=== PATIENT | female | born 2005 | race African-American/Black ===

== ENCOUNTER 2024-06-25 12:42 | Emergency (ER) | payer OTHER ==
[2024-06-25 13:34] LABS: Absolute Lymphocytes (CBC) 1.8 K/uL (0.7-4.9); Absolute Monocytes 0.5 K/uL (0.1-1.3); Absolute Neutrophil 6.7 K/uL (1.8-8.0); Basophils % 0.5 % (0-1.3); Eosinophils % 0.2 % (0-4.4); Hematocrit 35.5 % (36.0-45.0); Hemoglobin 10.9 g/dL (12.0-15.0); Lymphocytes % 19.4 % (15.3-44.8); MCH 24.5 pg (27.0-35.0); MCHC 30.6 g/dL (32.0-36.0); MPV 8.8 fL (7.6-11.3); Monocytes % 5.6 % (3.3-12.3); Neutrophils % 74.3 % (41.7-73.7); Platelets 410 thou/uL (152-406); RBC Red Blood Cell Count 4.44 M/uL (3.86-4.86); Red Cell Distribution Width 14.4 % (12.1-15.2)
[2024-06-25 13:35] LABS: Specific Gravity > 1.030 (1.005-1.030)
[2024-06-25 13:38] LABS: Specific Gravity > 1.030 (1.005-1.030); Sqamous Epithelial 20-50 /HPF (None Seen); Urine Bacteria 20-50 /HPF (<20); Urine Bilirubin NEGATIVE (Negative); Urine Blood 3+ (OVER) (Negative); Urine Clarity Extremely Turbid (Clear); Urine Color Yellow (Yellow); Urine Culture Reflex Order NOT NEEDED; Urine Glucose NEGATIVE (Negative); Urine Ketones 1+ (Negative); Urine Microscopic Reflex YN ORDER UMIC; Urine Mucus 3+ /HPF (None Seen); Urine Nitrite NEGATIVE (Negative); Urine Protein TRACE (Negative); Urine RBC 21-50 /HPF (None Seen); Urine Urobilinogen Normal (Normal); Urine pH 5.5 (5.0-7.0)
[2024-06-25 13:56] LABS: AST/SGOT 13 U/L (15-37); Albumin 3.8 g/dL (3.4-5.0); Alkaline Phosphatase 69 U/L (45-117); Anion Gap 10.5 mEq/L (5.0-15.0); BUN Blood Urea Nitrogen 12 mg/dL (7-18); Bicarbonate 24 mEq/L (21-32); Bilirubin Total 0.6 mg/dL (0.2-1.0); Globulin 3.9 g/dL (2.3-3.5); Glomerular Filtration Rate 134 ml/min (=/>90); Glucose Level 78 mg/dL (74-106); Potassium 3.5 mEq/L (3.5-5.1); Protein, Total 7.7 g/dL (6.4-8.2); Sodium Level 138 mEq/L (136-145)
[2024-06-25 13:59] LABS: ALT/SGPT < 14 U/L (13-56)
--- NOTE | 2024-06-25 14:06 | RAD REPORT ---
EXAMINATION: CT ABDOMEN AND PELVIS WITH CONTRAST CLINICAL INDICATION: Abdominal pain TECHNIQUE: CT abdomen and pelvis was performed, after the administration of 100 cc Isovue-300.. Sagit melissa and coronal reconstructions were obtained. One or more of the following dose reduction techniques were used: Automated exposure control, adjustment of the mA and kV according to patient si ze, and iterative reconstruction. Unless otherwise specified, incidental findings do not require dedicated imaging follow-up. [id number]. Oral contrast was not given which limits evaluation of bowel and appendix. COMPARISON: .None FINDINGS: Liver, spleen, pancreas, adrenals and kidneys appear unremarkable No evidence of diverticulitis. Normal appendix. 2 cm irregularly shaped right ovarian cyst has recently ruptured. No significant free fluid. No follo w-up recommended. Large amount stool within the colon : IMPRESSION: 2 cm irregularly-shaped right ovarian cyst. Large amount stool within the colon 5
--- NOTE | 2024-06-25 14:25 | EDPHYS ---
Physician Documentation [facility] Name: Magda Garcia Age: 18 yrs Sex: Female : 2005 Arrival Date: 06/25/2024 Time: 12:42 Bed 16 Private MD: ED Physician Jose Juan Galvez HPI: 06/25 13:20 This 18 yrs old Black Female presents to ER via Ambulatory with complaints of abdominal rn pain, Vaginal Bleeding. 13:20 The patient presents with abdominal pain in the lower abdomen. Onset: The rn symptoms/episode began/occurred 2 day(s) ago. The symptoms do not radiate. Associated signs and symptoms: Pertinent negatives: chest pain, constipation, diarrhea, dysuria, fever, vaginal discharge. The symptoms are described as crampy, sharp. Modifying factors: The symptoms are alleviated by nothing, the symptoms are aggravated by movement, touching the area. Severity of pain: At its worst the pain was mild in the emergency department the pain is unchanged. The patient has not experienced similar symptoms in the past. Patient reports diagnosed with ruptured ovarian cyst 2 days ago, told pain would be better by now. Also history with vaginal spotting and clot yesterday which concerned her. No trauma. No fever or chills.. 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 - Infectious Disease History:: Denies. - Social history:: Smoking status: Patient denies any tobacco usage or history of. Patient uses street drugs, marijuana. - Family history:: not pertinent. - Hospitalizations: : No recent hospitalization is reported. ROS: 13:20 Constitutional: Negative for fever, chills, and weight loss, Cardiovascular: Negative rn for chest pain, palpitations, and edema, Respiratory: Negative for shortness of breath, cough, wheezing, and pleuritic chest pain, Abdomen/GI: Positive for lower abdominal pain Back: Negative for injury and pain, : Negative for injury, bleeding, discharge, and swelling, MS/Extremity: Negative for injury and deformity, Skin: Negative for injury, rash, and discoloration, Neuro: Negative for headache, weakness, numbness, tingling, and seizure, Exam: 13:20 Constitutional: This is a well developed, well nourished patient who is awake, alert, rn and in no acute distress. Cardiovascular: Regular rate and rhythm. No pulse deficits. Abdomen/GI: Soft, no focal tenderness Vital Signs: 12:58 BP 114 / 70; Pulse 72; Resp 18; Temp 98.3; Pulse Ox 100% on R/A; Weight 57.61 kg; cm10 Height 5 ft. 4 in. ; Pain 5/10; 14:30 BP 118 / 72; Pulse 69; Resp 18; Pulse Ox 98% on R/A; ph 12:58 Body Mass Index 21.80 (57.61 kg, 162.56 cm) - Percentile 51.8 % cm10 12:58 Pain Scale: Adult cm10 MDM: 12:45 Medical Screening Exam initiated rn 14:22 Differential diagnosis: appendicitis, non-specific abd pain, Ureterolithiasis, urinary rn tract infection, Persistent pain from ruptured ovarian cyst. Data reviewed: vital signs, nurses notes, lab test result(s), radiologic studies, CT scan, and as a result, I will discharge patient. Counseling: I had a detailed discussion with the patient and/or guardian regarding the historical points, exam findings, and any diagnostic results supporting the discharge/admit diagnosis, lab results, radiology results, the need for outpatient follow up, to return to the emergency department if symptoms worsen or persist or if there are any questions or concerns that arise at home. Special discussion: Based on the patient's Hx, exam, and Dx evaluation, there is no indication for emergent surgery or inpatient Tx. It is understood by the patient/guardian that if the Sx's persist or worsen they need to return immediately for re-evaluation. I discussed with the patient/guardian in detail that at this point there is no indication for admission to the hospital. It is understood, however, that if the symptoms persist or worsen the patient needs to return immediately for re-evaluation. ED course: No acute findings and workup today other than known ruptured ovarian cyst. Will discharge home given no new findings.. 06/25 13:05 Order name: CBC with Diff; Complete Time: 14:15 rn 06/25 13:05 Order name: CMP; Complete Time: 14:15 rn 06/25 13:05 Order name: Test, Urine; Complete Time: 14:15 rn 06/25 13:05 Order name: Urinalysis w/ reflexes; Complete Time: 14:15 rn 06/25 13:05 Order name: CT Abd/Pelvis - IV Contrast Only; Complete Time: 14:15 rn 06/25 13:05 Order name: IV Saline Lock; Complete Time: 13:19 rn 06/25 13:05 Order name: Labs collected and sent; Complete Time: 13:19 rn Administered Medications: No medications were administered Disposition Summary: 06/25/24 14:25 Discharge Ordered Notes: Location: Home rn Problem: new rn Symptoms: have improved rn Condition: Stable rn Diagnosis - Other and unspecified ovarian cysts - with rupture rn Followup: rn - With: Private Physician - When: As needed - Reason: Recheck today's complaints, Re-evaluation by your physician Discharge Instructions: - Discharge Summary Sheet rn - Ovarian Cyst rn Forms: - Medication Reconciliation Form rn - Antibiotic rn clinical research - Prescription Opioid Use rn - Patient Portal Instructions rn - Leadership Thank You Letter rn Signatures: Dispatcher [employer] EDMS Jose Juan Galvez MD MD rn Coty Bradford RN RN cm10 Corrections: (The following items were deleted from the chart) 13:06 13:06 Abdomen Pelvis W Con+CT.RAD.BRZ ordered. EDMS EDMS 13:06 13:06 CBC+H.LAB.BRZ ordered. EDMS EDMS 13:06 13:06 COMPREHENSIVE METABOLIC PANEL+C.LAB.BRZ ordered. EDMS EDMS 13:06 13:06 Test, Urine+UC.LAB.BRZ ordered. EDMS EDMS 13:06 13:06 Urinalysis+U.LAB.BRZ ordered. EDMS EDMS
--- NOTE | 2024-06-25 14:25 | ER ---
Nurse's Notes [facility] Name: Magda Garcia Age: 18 yrs Sex: Female : 2005 Arrival Date: 06/25/2024 Time: 12:42 Bed 16 Private MD: Diagnosis: Other and unspecified ovarian cysts-with rupture Presentation: 06/25 12:58 Chief complaint: Patient states: Diagnosed with ruptured ovarian cyst 2 days ago. Pt cm10 states that the pain was originally on her left side of abdomen and now it is on her right side as well. Pt reports that today she started having vaginal bleeding that was bright red blood with a small clot. PT reports that yesterday she had spotting. Pt reports nausea and bloating. Coronavirus screen: Client denies travel out of the [place] in the last 14 days. Ebola Screen: Patient denies travel to an Ebola-affected area in the 21 days before illness onset. No symptoms or risks identified at this time. Initial Sepsis Screen: Does the patient meet any 2 criteria? No. Patient's initial sepsis screen is negative. Does the patient have a suspected source of infection? No. Patient's initial sepsis screen is negative. Risk Assessment: Do you want to hurt yourself or someone else? Patient reports no desire to harm self or others. Onset of symptoms was June 25, 2024. 12:58 Method Of Arrival: Ambulatory cm10 12:58 Acuity: OSCAR 3 cm10 Triage Assessment: 13:00 General: Appears in no apparent distress. uncomfortable, Behavior is calm, cooperative. cm10 Pain: Complains of pain in right lower quadrant and left lower quadrant Pain currently is 5 out of 10 on a pain scale. Neuro: No deficits noted. Level of Consciousness is awake, alert, obeys commands, Oriented to person, place, time, situation, Appropriate for age. 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 - Infectious Disease History:: Denies. - Social history:: Smoking status: Patient denies any tobacco usage or history of. Patient uses street drugs, marijuana. - Family history:: not pertinent. - Hospitalizations: : No recent hospitalization is reported. Screenin:34 [facility] ED Fall Risk Assessment (Adult) History of falling in the last 3 months, iw including since admission No falls in past 3 months (0 pts) Confusion or Disorientation No (0 pts) Intoxicated or Sedated No (0 pts) Impaired Gait No (0 pts) Mobility Assist Device Used No (0 pt) Altered Elimination No (0 pt) Score/Fall Risk Level 0 - 2 = Low Risk Oriented to surroundings, Maintained a safe environment. Abuse screen: Denies threats or abuse. Nutritional screening: No deficits noted. Tuberculosis screening: No symptoms or risk factors identified. Assessment: 14:20 General: Appears in no apparent distress. comfortable, Behavior is calm, cooperative. iw Pain: Complains of pain in left lower quadrant and right lower quadrant. Neuro: Level of Consciousness is awake, alert, obeys commands, Oriented to person, place, time, situation, Moves all extremities. Full function. Respiratory: Respiratory effort is even, unlabored, Respiratory pattern is regular. GI: Abdomen is flat, non-distended. : Reports vaginal bleeding that is. : Reports pain in suprapubic area. Derm: Skin is intact, is healthy with good turgor. Musculoskeletal: Capillary refill is > 3 seconds. Vital Signs: 12:58 BP 114 / 70; Pulse 72; Resp 18; Temp 98.3; Pulse Ox 100% on R/A; Weight 57.61 kg; cm10 Height 5 ft. 4 in. ; Pain 5/10; 14:30 BP 118 / 72; Pulse 69; Resp 18; Pulse Ox 98% on R/A; ph 12:58 Body Mass Index 21.80 (57.61 kg, 162.56 cm) - Percentile 51.8 % cm10 12:58 Pain Scale: Adult cm10 ED Course: 12:45 Patient arrived in ED. ra3 12:45 Jose Juan Galvez MD is Attending Physician. rn 13:00 Triage completed. cm10 13:00 Arm band placed on right wrist. Patient placed in waiting room. cm10 13:00 Patient has correct armband on for positive identification. iw 13:19 CBC with Diff Sent. cm10 13:19 CMP Sent. cm10 13:19 Test, Urine Sent. cm10 13:19 Urinalysis w/ reflexes Sent. cm10 13:19 Initial lab(s) drawn, by ma, sent to lab. Urine collected: clean catch specimen, cm10 cloudy. Inserted saline lock: 20 gauge in right antecubital area, using aseptic technique. Blood collected. Flushed with 10 mL NS. 13:52 CT Abd/Pelvis - IV Contrast Only In Process Unspecified. EDMS 14:23 Sisi Du, RN is Primary Nurse. ph 14:34 No provider procedures requiring assistance completed. IV discontinued, intact, iw bleeding controlled, No redness/swelling at site. Pressure dressing applied. Administered Medications: No medications were administered Medication: 14:35 VIS not applicable for this client. iw Outcome: 14:25 Discharge ordered by . rn 14:34 Discharged to home ambulatory, iw 14:34 Condition: good 14:34 Discharge instructions given to patient, Instructed on discharge instructions, follow up and referral plans. Demonstrated understanding of instructions, follow-up care, 14:35 Patient left the ED. iw Signatures: Dispatcher [employer] EDMS Brigid Ponce, RN RN iw Jose Juan Galvez MD MD rn Hall, Patricia, RN RN Coty Bradford, RN RN Tammy Maurice ra3
[2024-06-25 17:31] VITALS: BP 114/70; TEMP 98.3; O2SAT 100
== END 2024-06-25 14:35 | disposition home or self-care (01) ==
LOC: ER 12:42
DX: N83.299 Other ovarian cyst, unspecified side (principal)
CPT/HCPCS: 85025; 81001; 36415; 81025; 80053; 74177; 99283; Q9967

== ENCOUNTER 2024-07-16 08:55 | Emergency (ER) | payer OTHER ==
[2024-07-16 09:43] LABS: Absolute Basophils 0.1 K/uL (0-0.5); Absolute Lymphocytes (CBC) 1.2 K/uL (0.7-4.9); Absolute Monocytes 0.9 K/uL (0.1-1.3); Absolute Neutrophil 6.3 K/uL (1.8-8.0); Basophils % 0.9 % (0-1.3); Eosinophils % 0.5 % (0-4.4); Hematocrit 31.5 % (36.0-45.0); Lymphocytes % 14.5 % (15.3-44.8); MCH 24.9 pg (27.0-35.0); MCHC 31.8 g/dL (32.0-36.0); MCV 78.3 fL (80-100); MPV 8.6 fL (7.6-11.3); Monocytes % 10.4 % (3.3-12.3); Neutrophils % 73.7 % (41.7-73.7); Nucleated Red Blood Cells % 0.1 % (0-0); Platelets 291 thou/uL (152-406); RBC Red Blood Cell Count 4.02 M/uL (3.86-4.86); Red Cell Distribution Width 14.4 % (12.1-15.2)
[2024-07-16 09:47] LABS: Specific Gravity > 1.030 (1.005-1.030); Urine Bacteria None Seen /HPF (<20); Urine Bilirubin NEGATIVE (Negative); Urine Blood Negative (Negative); Urine Clarity Extremely Turbid (Clear); Urine Color Yellow (Yellow); Urine Culture Reflex Order NOT NEEDED; Urine Glucose NEGATIVE (Negative); Urine Ketones NEGATIVE (Negative); Urine Microscopic Reflex YN ORDER UMIC; Urine Mucus 2+ /HPF (None Seen); Urine Nitrite NEGATIVE (Negative); Urine Protein TRACE (Negative); Urine RBC <5 /HPF (None Seen); Urine Urobilinogen Normal (Normal); Urine pH 5.5 (5.0-7.0)
[2024-07-16 10:01] LABS: Albumin 3.4 g/dL (3.4-5.0); Albumin/Globulin Ratio 0.9 (1.1-1.8); Alkaline Phosphatase 69 U/L (45-117); Anion Gap 7.8 mEq/L (5.0-15.0); BUN Blood Urea Nitrogen 9 mg/dL (7-18); Bicarbonate 25 mEq/L (21-32); Bilirubin Total 0.4 mg/dL (0.2-1.0); Glomerular Filtration Rate 133 ml/min (=/>90); Glucose Level 95 mg/dL (74-106); Potassium 3.8 mEq/L (3.5-5.1); Protein, Total 7.4 g/dL (6.4-8.2); Sodium Level 138 mEq/L (136-145)
[2024-07-16 10:02] LABS: ALT/SGPT < 14 U/L (13-56); AST/SGOT < 10 U/L (15-37)
--- NOTE | 2024-07-16 10:10 | RAD REPORT ---
EXAMINATION: CT ABDOMEN AND PELVIS WITH CONTRAST CLINICAL INDICATION: ABD PAIN TECHNIQUE: CT abdomen and pelvis was performed, after the administration of IV contrast, as per [facility] protocol. Axial, sagittal and coronal reconstructions were obtained. One or more of the following dose reduction techniques were used: Automated exposure control, adjustment of the mA and k V according to patient size, and iterative reconstruction. Unless otherwise specified, incidental findings do not require dedicated imaging follow-up. COMPARISON: 06/25/2024 FINDINGS: LOWER CHEST: The visualized lung bases are clear. LIVER: Normal in size and contour. No focal lesion. Grossly unremarkable gallbladder. SPLEEN: Normal size. No focal lesion. PANCREAS: No mass, ductal dilation, or anusha-pancreatic fluid. ADRENALS: Normal; no mass. KIDNEYS: Normal size and contour. No hydronephrosis. GASTROINTESTINAL TRACT: No evidence of free air, significant intra-abdominal free fluid, bowel obstru ction or abscess. Moderate stool is retained throughout the colon. APPENDIX: Normal appendix. LYMPH NODES: No lymphadenopathy. MUSCULOSKELETAL: No acute or suspicious osseous abnormality. ADDITIONAL FINDINGS: None. IMPRESSION: No acute or concerning abnormalities seen in the abdomen or pelvis.
--- NOTE | 2024-07-16 10:40 | ER ---
Nurse's Notes [facility] Name: Magda Garcia Age: 18 yrs Sex: Female : 2005 Arrival Date: 07/16/2024 Time: 08:55 Bed 18 Private MD: Diagnosis: Abdominal pain, unspecified Presentation: 07/16 09:15 Chief complaint: Patient states: abd pain x 2 days. Pt reports she was seen some what ss recently here in the ER and diagnosed with an ovarian cyst, and states the pain feels similar. Coronavirus screen: Client denies travel out of the [place] in the last 14 days. Ebola Screen: Patient denies exposure to infectious person. Patient denies travel to an Ebola-affected area in the 21 days before illness onset. Initial Sepsis Screen: Does the patient meet any 2 criteria? No. Patient's initial sepsis screen is negative. Does the patient have a suspected source of infection? No. Patient's initial sepsis screen is negative. Risk Assessment: Do you want to hurt yourself or someone else? Patient reports no desire to harm self or others. Onset of symptoms was July 14, 2024. 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 - Infectious Disease History:: Denies. - Family history:: not pertinent. - Social history:: Smoking status: unknown. - Hospitalizations: : No recent hospitalization is reported. Screenin:34 [facility] ED Fall Risk Assessment (Adult) History of falling in the last 3 months, ap3 including since admission No falls in past 3 months (0 pts) Confusion or Disorientation No (0 pts) Intoxicated or Sedated No (0 pts) Impaired Gait No (0 pts) Mobility Assist Device Used No (0 pt) Altered Elimination No (0 pt) Score/Fall Risk Level 0 - 2 = Low Risk Oriented to surroundings, Maintained a safe environment, Educated pt \T\ family on fall prevention, incl call for assistance when getting out of bed, Assessed \T\ reinforced patient's understanding of fall precautions, Hourly rounding (assess needs \T\ fall precautionary measures) done, Used ambulatory aids as needed (educated on \T\ assisted with), Used gait belt as appropriate. Abuse screen: Denies threats or abuse. Nutritional screening: No deficits noted. Tuberculosis screening: No symptoms or risk factors identified. Assessment: 09:33 General: Appears in no apparent distress. Behavior is calm, cooperative, appropriate ap3 for age. Pain: Complains of pain in abdomen Pain began 2-3 days ago. Neuro: Level of Consciousness is awake, alert, obeys commands, Oriented to person, place, time, situation, Appropriate for age Gait is steady, Speech is normal, Facial symmetry appears normal. Cardiovascular: Patient's skin is warm and dry. Respiratory: Airway is patent Respiratory effort is even, unlabored, Respiratory pattern is regular, symmetrical. GI: Abd is soft Reports lower abdominal pain, upper abdominal pain. Vital Signs: 09:15 Resp 14; Weight 56.7 kg; Height 5 ft. 4 in. ; Pain 8/10; ss 09:35 BP 104 / 50; Pulse 54; Resp 17; Pulse Ox 99% ; ap3 09:15 Body Mass Index 21.46 (56.70 kg, 162.56 cm) - Percentile 47.4 % ss 09:15 Pain Scale: Adult ss ED Course: 08:59 Patient arrived in ED. sj2 08:59 Jose Juan Galvez MD is Attending Physician. rn 09:16 Radhika Garcia RN is Primary Nurse. ap3 09:16 Triage completed. ss 09:16 Arm band placed on right wrist. ss 09:33 Initial lab(s) drawn, by la, sent to lab. Urine collected: clean catch specimen. ap3 Inserted saline lock: 22 gauge in right antecubital area, using aseptic technique. Blood collected. Flushed with 10 mL NS. 09:33 CBC with Diff Sent. ap3 09:33 CMP Sent. ap3 09:33 Test, Urine Sent. ap3 09:33 Urinalysis w/ reflexes Sent. ap3 09:35 Patient has correct armband on for positive identification. Placed in gown. Bed in low ap3 position. Call light in reach. Side rails up X 1. Provided Education on: call light education. Pulse ox on. NIBP on. 10:04 CT Abd/Pelvis - IV Contrast Only In Process Unspecified. EDMS 11:00 No provider procedures requiring assistance completed. IV discontinued, intact, ap3 bleeding controlled, No redness/swelling at site. Pressure dressing applied. Administered Medications: No medications were administered Medication: 11:00 VIS not applicable for this client. ap3 Outcome: 10:40 Discharge ordered by . rn 11:00 Discharged to home ambulatory, ap3 11:00 Condition: good 11:00 Discharge instructions given to patient, Instructed on discharge instructions, follow up and referral plans. Demonstrated understanding of instructions, follow-up care, 11:00 Patient left the ED. ap3 Signatures: Dispatcher [employer] EDMS Jose Juan Galvez MD MD rn Blanchard, Shelby, RN RN ss Prokisch, Amanda, RN RN ap3 Fernando Meyer2
--- NOTE | 2024-07-16 10:40 | EDPHYS ---
Physician Documentation [facility] Name: Magda Garcia Age: 18 yrs Sex: Female : 2005 Arrival Date: 07/16/2024 Time: 08:55 Bed 18 Private MD: ED Physician Jose Juan Galvez HPI: 07/16 09:45 This 18 yrs old Black Female presents to ER via Ambulatory with complaints of Abdominal rn Pain. 09:45 The patient presents with abdominal pain in the lower abdomen. Onset: The rn symptoms/episode began/occurred yesterday. The symptoms do not radiate. Modifying factors: The symptoms are alleviated by nothing, the symptoms are aggravated by movement, touching the area. Severity of pain: At its worst the pain was mild in the emergency department the pain is unchanged. The patient has experienced a previous episode. Patient reports history of ovarian cyst, lower abdominal pain that began yesterday feels similar to previous ovarian cyst. No fever or chills. No vomiting or diarrhea. Last menstrual period 2 weeks ago. No blood in stool. No history of kidney stone. No trauma.. 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 - Infectious Disease History:: Denies. - Family history:: not pertinent. - Social history:: Smoking status: unknown. - Hospitalizations: : No recent hospitalization is reported. ROS: 09:45 Constitutional: Negative for fever, chills, and weight loss, Cardiovascular: Negative rn for chest pain, palpitations, and edema, Respiratory: Negative for shortness of breath, cough, wheezing, and pleuritic chest pain, Abdomen/GI: Positive for abdominal pain Back: Negative for injury and pain, : Negative for injury, bleeding, discharge, and swelling, MS/Extremity: Negative for injury and deformity, Neuro: Negative for headache, weakness, numbness, tingling, and seizure, Exam: 09:45 Constitutional: This is a well developed, well nourished patient who is awake, alert, rn and in no acute distress. Cardiovascular: Regular rate and rhythm with a normal S1 and S2. No gallops, murmurs, or rubs. Normal PMI, no JVD. No pulse deficits. Respiratory: Lungs have equal breath sounds bilaterally, clear to auscultation and percussion. No rales, rhonchi or wheezes noted. No increased work of breathing, no retractions or nasal flaring. Abdomen/GI: Soft, no focal tenderness. No rebound or guarding MS/ Extremity: Pulses equal, no cyanosis. Neurovascular intact. Full, normal range of motion. Equal circumference. Neuro: Awake and alert, GCS 15, oriented to person, place, time, and situation. Cranial nerves II-XII grossly intact. Motor strength 5/5 in all extremities. Sensory grossly intact. Cerebellar exam normal. Normal gait. Vital Signs: 09:15 Resp 14; Weight 56.7 kg; Height 5 ft. 4 in. ; Pain 8/10; ss 09:35 BP 104 / 50; Pulse 54; Resp 17; Pulse Ox 99% ; ap3 09:15 Body Mass Index 21.46 (56.70 kg, 162.56 cm) - Percentile 47.4 % ss 09:15 Pain Scale: Adult ss MDM: 08:59 Medical Screening Exam initiated rn 10:26 Differential diagnosis: appendicitis, non-specific abd pain, Ureterolithiasis, urinary rn tract infection. 10:26 Data reviewed: vital signs, nurses notes, lab test result(s), radiologic studies, CT rn scan, and as a result, I will discharge patient. Counseling: I had a detailed discussion with the patient and/or guardian regarding the historical points, exam findings, and any diagnostic results supporting the discharge/admit diagnosis, lab results, radiology results, the need for outpatient follow up, to return to the emergency department if symptoms worsen or persist or if there are any questions or concerns that arise at home. Special discussion: Based on the patient's Hx, exam, and Dx evaluation, there is no indication for emergent surgery or inpatient Tx. It is understood by the patient/guardian that if the Sx's persist or worsen they need to return immediately for re-evaluation. I discussed with the patient/guardian in detail that at this point there is no indication for admission to the hospital. It is understood, however, that if the symptoms persist or worsen the patient needs to return immediately for re-evaluation. ED course: No acute findings and workup. CT without acute findings. Specifically no ovarian cyst.. 10:28 ED course: No focal tenderness on exam. No peritoneal signs. Patient reports more pain rn periumbilical and suprapubic region and not in pelvis. Will discharge home with ibuprofen and return precautions.. 10:39 ED course: Recommended ultrasound to evaluate ovaries and rule out ovarian torsion, rn patient seemed upset that the CT did not reveal etiology and does not want to wait for an ultrasound. Understands the risk of leaving without full ovarian evaluation.. 07/16 09:11 Order name: CBC with Diff; Complete Time: 10:21 rn 07/16 09:11 Order name: CMP; Complete Time: 10:21 rn 07/16 09:11 Order name: Test, Urine; Complete Time: 10:21 rn 07/16 09:11 Order name: Urinalysis w/ reflexes; Complete Time: 10:21 rn 07/16 09:11 Order name: CT Abd/Pelvis - IV Contrast Only; Complete Time: 10:21 rn 07/16 09:11 Order name: IV Saline Lock; Complete Time: 09:33 rn 07/16 09:12 Order name: Labs collected and sent; Complete Time: 09:33 rn Administered Medications: No medications were administered Disposition Summary: 07/16/24 10:40 Discharge Ordered Notes: Location: Home rn Problem: new rn Symptoms: have improved rn Condition: Stable rn Diagnosis - Abdominal pain, unspecified rn Followup: rn - With: Private Physician - When: As needed - Reason: Recheck today's complaints, Re-evaluation by your physician Discharge Instructions: - Discharge Summary Sheet rn - Abdominal Pain, Adult rn Forms: - Medication Reconciliation Form rn - Antibiotic senior internet sales consultant - Prescription Opioid Use rn - Patient Portal Instructions rn - Leadership Thank You Letter rn Signatures: Dispatcher [employer] Jose Juan Hubbard MD MD rn Blanchard, Shelby, RN RN ss Prokisch, Amanda, RN RN ap3 Corrections: (The following items were deleted from the chart) 09:12 09:12 CBC+H.LAB.BRZ ordered. EDMS EDMS 09:12 09:12 COMPREHENSIVE METABOLIC PANEL+C.LAB.BRZ ordered. EDMS EDMS 09:12 09:12 Test, Urine+UC.LAB.BRZ ordered. EDMS EDMS 09:12 09:12 Urinalysis+U.LAB.BRZ ordered. EDMS EDMS 09:12 Abdomen Pelvis W Con+CT.RAD.BRZ ordered. EDMS EDMS
[2024-07-16 11:06] VITALS: BP 104/50; O2SAT 99
== END 2024-07-16 11:00 | disposition home or self-care (01) ==
LOC: ER 08:55
DX: R10.32 Left lower quadrant pain (principal)
CPT/HCPCS: 85025; 81001; 36415; 81025; 80053; 74177; 99284; Q9967

== ENCOUNTER 2024-10-12 09:51 | Emergency (ER) | payer OTHER ==
[2024-10-12] MEDS ORDERED: KETOROLAC 30 MG/ML INJ ONE (10:21)
--- NOTE | 2024-10-12 10:26 | ER ---
Nurse's Notes [facility] Name: Magda Garcia Age: 18 yrs Sex: Female : 2005 Arrival Date: 10/12/2024 Time: 09:51 Bed 20 Private MD: Diagnosis: Headache;Other hemorrhoids Presentation: 10/12 10:01 Chief complaint: Patient states: "AT FIRST THOUGHT I TORE IT. IT'S LIKE MY PERIOD, BUT bp FROM THE OTHER HOLE.". Coronavirus screen: At this time, the client does not indicate any symptoms associated with coronavirus-19. Ebola Screen: No symptoms or risks identified at this time. Initial Sepsis Screen: Does the patient meet any 2 criteria? No. Patient's initial sepsis screen is negative. Does the patient have a suspected source of infection? No. Patient's initial sepsis screen is negative. Risk Assessment: Do you want to hurt yourself or someone else? Patient reports no desire to harm self or others. Onset of symptoms is unknown. 10:01 Method Of Arrival: Ambulatory bp 10:01 Acuity: OSCAR 3 bp Triage Assessment: 10:03 Headache History: Denies prior headaches. General: Appears in no apparent distress. bp Behavior is cooperative, appropriate for age, anxious. Pain: Denies pain. Pain: Pain currently is 2 out of 10 on a pain scale. Pain began suddenly, Also complains of no other associated symptoms. EENT: No deficits noted. Neuro: Level of Consciousness is awake, alert, obeys commands, Oriented to Appropriate for age. Cardiovascular: No deficits noted. Respiratory: No deficits noted. GI: Reports rectal bleeding. : No signs and/or symptoms were reported regarding the genitourinary system. Derm: No deficits noted. Musculoskeletal: No deficits noted. Historical: - Allergies: 10:03 No Known Allergies; bp - Home Meds: 10:03 None [Active]; bp - PMHx: 10:03 None; bp - Immunization history:: Adult Immunizations up to date. - Infectious Disease History:: Denies. - Social history:: Smoking status: Patient reports the use of cigarette tobacco products, unknown amount. Screenin:05 [facility] ED Fall Risk Assessment (Adult) History of falling in the last 3 months, bp including since admission No falls in past 3 months (0 pts) Confusion or Disorientation No (0 pts) Intoxicated or Sedated No (0 pts) Impaired Gait No (0 pts) Mobility Assist Device Used No (0 pt) Altered Elimination No (0 pt) Score/Fall Risk Level 0 - 2 = Low Risk Oriented to surroundings. Abuse screen: Denies threats or abuse. Denies injuries from another. Nutritional screening: No deficits noted. Tuberculosis screening: No symptoms or risk factors identified. Assessment: 10:05 General: Appears in no apparent distress. Behavior is cooperative, appropriate for age, bp anxious. Vital Signs: 10:01 BP 134 / 96; Pulse 72; Resp 16; Temp 98; Pulse Ox 98% ; bp Herrera Coma Score: 10:21 Eye Response: spontaneous(4). Motor Response: obeys commands(6). Verbal Response: kb oriented(5). Total: 15. ED Course: 09:55 Patient arrived in ED. al6 09:56 Keisha Abdalla FNP-C is [facility]. kb 09:56 Nino Jean MD is Attending Physician. kb 09:57 Cecilio Xie, RN is Primary Nurse. bp 10:03 Triage completed. bp 10:03 Arm band placed on. bp 10:05 Patient has correct armband on for positive identification. bp 10:37 No provider procedures requiring assistance completed. Patient did not have IV access bp during this emergency room visit. Administered Medications: 10:24 Drug: Ketorolac IM 30 mg IM once Route: IM; Site: right deltoid; bp 10:25 Follow up: Response: No adverse reaction bp Medication: 10:05 VIS not applicable for this client. bp Outcome: 10:25 Discharge ordered by . kb 10:37 Discharged to home ambulatory, bp 10:37 Condition: stable 10:37 Discharge instructions given to patient, Instructed on discharge instructions, follow up and referral plans. medication usage, Demonstrated understanding of instructions, follow-up care, medications, Prescriptions given X 1, 10:39 Patient left the ED. bp Signatures: Keisha Abdalla FNP-C FNP-Ckb Peltier, Brian, RN RN Maria Eugenia Billingsleyssa al6
--- NOTE | 2024-10-12 10:26 | EDPHYS ---
Physician Documentation [facility] Name: Magda Garcia Age: 18 yrs Sex: Female : 2005 Arrival Date: 10/12/2024 Time: 09:51 Bed 20 Private MD: ED Physician Nnio Jean HPI: 10/12 10:22 This 18 yrs old Black Female presents to ER via Ambulatory with complaints of Headache, kb Rectal Bleeding. 10:22 Pt is a 18 year old female who presents for rectal bleeding that started 2-3 days ago. kb states it was small amounts without bowel movements for the first 2 days, but today there was more blood. States bleeding only with bowel movements. Reports problems with hard stool and constipation. Also reports headaches that she has had for over 2 years. . Historical: - Allergies: 10:03 No Known Allergies; bp - Home Meds: 10:03 None [Active]; bp - PMHx: 10:03 None; bp - Immunization history:: Adult Immunizations up to date. - Infectious Disease History:: Denies. - Social history:: Smoking status: Patient reports the use of cigarette tobacco products, unknown amount. ROS: 10:19 Constitutional: As per HPI kb Exam: 10:19 Constitutional: This is a well developed, well nourished patient who is awake, alert, kb and in no acute distress. Head/Face: Normocephalic, atraumatic. Eyes: Pupils equal round and reactive to light, extra-ocular motions intact. Lids and lashes normal. Conjunctiva and sclera are non-icteric and not injected. Cornea within normal limits. Periorbital areas with no swelling, redness, or edema. ENT: Moist Mucous membranes Cardiovascular: Regular rate Respiratory: Respirations even and unlabored. No increased work of breathing. Talking in full sentences Abdomen/GI: Soft, non-tender. No distention Skin: Warm, dry with normal turgor. Normal color. MS/ Extremity: Pulses equal, no cyanosis. Neurovascular intact. Full, normal range of motion. Neuro: Awake and alert, GCS 15, oriented to person, place, time, and situation. 10:19 Abdomen/GI: Rectal exam: hemorrhoid(s), external, with associated bleeding, with inflammation, with pain, tenderness, that is mild, Vital Signs: 10:01 BP 134 / 96; Pulse 72; Resp 16; Temp 98; Pulse Ox 98% ; bp Herrera Coma Score: 10:21 Eye Response: spontaneous(4). Motor Response: obeys commands(6). Verbal Response: kb oriented(5). Total: 15. MDM: 09:56 Medical Screening Exam initiated kb 10:21 Data reviewed: vital signs, nurses notes. kb 10:21 Differential diagnosis: hemorrhoids, fissure, abscess. Counseling: I had a detailed kb discussion with the patient and/or guardian regarding the historical points, exam findings, and any diagnostic results supporting the discharge/admit diagnosis, the need for outpatient follow up, a family practitioner, to return to the emergency department if symptoms worsen or persist or if there are any questions or concerns that arise at home. 10:21 Test considered but Not performed: Labs: cbc, cmp considered but vss, no active kb bleeding, hemorrhoids on exam, no abd pain. 10:24 Test considered but Not performed: CT: ct head considered but headaches have been kb intermittent, unchanged for over 2 years, no neuro deficits. Recommended follow up with neurology. Administered Medications: 10:24 Drug: Ketorolac IM 30 mg IM once Route: IM; Site: right deltoid; bp 10:25 Follow up: Response: No adverse reaction bp Disposition: 11:06 Co-signature as Attending Physician, Nino Jean MD I reviewed the patient's care rt provided by the Advanced Practice Provider and agree with the diagnosis and treatment plan. Disposition Summary: 10/12/24 10:25 Discharge Ordered Notes: Location: Home kb Condition: Stable kb Diagnosis - Headache kb - Other hemorrhoids kb Followup: kb - With: Emergency Department - When: As needed - Reason: Worsening of condition Followup: kb - With: Private Physician - When: 2 - 3 days - Reason: Recheck today's complaints, Continuance of care, Re-evaluation by your physician Discharge Instructions: - Hemorrhoids, [id number] kb - General Headache Without Cause, [id number] kb - Discharge Summary Sheet bp Forms: - Medication Reconciliation Form kb - Antibiotic Education kb - Prescription Opioid Use kb - Patient Portal Instructions kb - Leadership Thank You Letter kb - Work release form bp Prescriptions: - Anusol-HC 2.5 % Topical cream with perineal applicator - apply 1 application RECTAL route 4 times per day as needed for hemorrhoids; 1 kb Unspecified; Refills: 0, Product Selection Permitted Signatures: Keisha Abdalla FNP-C FNP-Ckb Peltier, Brian, LUIS RN bp Nino Jean MD MD rt
[2024-10-12 10:43] VITALS: BP 134/96; TEMP 98; O2SAT 98
== END 2024-10-12 10:39 | disposition home or self-care (01) ==
LOC: ER 09:51
DX: R51.9 Headache, unspecified (principal); K64.8 Other hemorrhoids
CPT/HCPCS: 96372; 99284